=== PATIENT | female | born 1975 | race African-American/Black ===

== ENCOUNTER 2018-09-26 23:26 | Emergency (ER) | payer OTHER, MEDICAID ==
[~2018-09-26] VITALS: Ht 165.1 cm; Wt 82.0 kg
[~2018-09-26 23:26] MED LIST: UNK MEDS
[2018-09-27] MEDS ORDERED: CLONIDINE 0.1MG TABLET PO ONE (06:45)
[2018-09-27 08:04] LABS: BASOPHILS % 0.7 % (0.0-2.0); EOSINOPHILS % 5.2 % (0.0-5.0); HEMATOCRIT. 36.3 % (36.0-48.0); HEMOGLOBIN. 11.9 g/dL (12.0-16.0); LYMPHOCYTES % 45.6 % (20.0-50.0); MEAN CORPUSCULAR HEMOGLOBIN 27.6 pg (28.0-32.0); MEAN CORPUSCULAR VOLUME 84.2 fL (81.0-99.0); MEAN PLATELET VOLUME 7.4 fl (7.4-10.4); MONOCYTES % 13.2 % (2.0-8.0); NEUTROPHILS % 35.3 % (40.0-76.0); PLATELET 332 x1000/uL (130-400); RED BLOOD CELL COUNT 4.31 mill/uL (4.2-5.4); RED CELL DISTRIBUTION WIDTH 14.1 % (11.6-14.6)
[2018-09-27 08:09] LABS: CHLORIDE 104 mEq/L (98-107)
[2018-09-27 09:49] LABS: *BARBITURATES SCREEN URINE NEGATIVE (NEGATIVE)
[2018-09-27 09:50] LABS: *BENZODIAZEPINES SCREEN URINE NEGATIVE (NEGATIVE); *COCAINE SCREEN URINE NEGATIVE (NEGATIVE); METHADONE URINE SCREEN NEGATIVE (NEGATIVE)
[2018-09-27 09:56] LABS: OPIATES URINE SCREEN NEGATIVE (NEGATIVE)
[2018-09-27 09:57] LABS: *AMPHETAMINES SCREEN URINE PRESUMTIVE POSITIVE (NEGATIVE); CANNABINOID URINE SCREEN PRESUMTIVE POSITIVE (NEGATIVE); PHENCYCLIDINE URINE SCREEN PRESUMTIVE POSITIVE (NEGATIVE)
[2018-09-27 14:27] VITALS: BP 163/106
== END 2018-09-27 14:42 | disposition home or self-care (01) ==
LOC: ER 23:26
DX: F15.10 Other stimulant abuse, uncomplicated (principal); I10 Essential (primary) hypertension; F16.10 Hallucinogen abuse, uncomplicated; F12.10 Cannabis abuse, uncomplicated; F17.210 Nicotine dependence, cigarettes, uncomplicated
CPT/HCPCS: 36415; 71045; 80305; 81025; 83880; 84484; 93005; 99284

== ENCOUNTER 2023-09-19 04:51 | Emergency (ER) | payer MEDICAID, OTHER ==
[~2023-09-19] VITALS: Ht 167.6 cm; Wt 104.0 kg
[2023-09-19 05:23] VITALS: BP 154/102; PULSE 88; RESP 18; TEMP 98.6; O2SAT 98
[2023-09-19] MEDS: ACETAMINOPHEN 325MG TABLET PO ONE (07:23)
== END 2023-09-19 09:08 | disposition left against medical advice (07) ==
LOC: ER 04:51
DX: I10 Essential (primary) hypertension (principal); M79.674 Pain in right toe(s); M79.675 Pain in left toe(s)
CPT/HCPCS: 99282; Z7610

== ENCOUNTER 2023-12-16 19:47 | Emergency (ER) | payer MEDICAID ==
[~2023-12-16] VITALS: Ht 165.1 cm; Wt 104.0 kg
[2023-12-16 20:02] VITALS: TEMP 98.3; O2SAT 100
[2023-12-16] MEDS: MORPHINE SULFATE 4 MG/ML INJ (FOR IV/IM USE) IM ONE (20:56)
[2023-12-16] MEDS: ONDANSETRON 4MG ODT PO ONE (20:56)
[2023-12-16] MEDS ORDERED: HYDR-4009 MT (21:05)
[2023-12-16] MEDS ORDERED: IBUP-2029 MT (21:05)
[2023-12-16] MEDS ORDERED: LIDO700A30 TP (21:05)
[2023-12-16 21:37] VITALS: BP 133/94; PULSE 105; RESP 18
[2023-12-16] MEDS: HYDROCODONE/ACETAMINOPHEN 10/325MG TABLET PO ONE (21:37)
== END 2023-12-17 00:03 | disposition home or self-care (01) ==
LOC: ER 19:47
DX: S22.42XA Multiple fractures of ribs, left side, initial encounter for closed fracture (principal); S42.302A Unspecified fracture of shaft of humerus, left arm, initial encounter for closed fracture; I10 Essential (primary) hypertension; Z79.899 Other long term (current) drug therapy; X58.XXXA Exposure to other specified factors, initial encounter; Y93.89 Activity, other specified; Y92.89 Other specified places as the place of occurrence of the external cause; Y99.8 Other external cause status
CPT/HCPCS: 99283; 96372; Q0162; J2270

== ENCOUNTER 2024-01-10 16:33 | Emergency (ER) | payer MEDICAID ==
[~2024-01-10] VITALS: Ht 165.1 cm; Wt 99.8 kg
[~2024-01-10 16:33] MED LIST changes: +HYDR-4009 MT; +IBUP-2029 MT; +LIDO700A30 TP
[2024-01-10 16:52] VITALS: O2SAT 99
[2024-01-10] MEDS ORDERED: ACETAMINOPHEN 325MG TABLET PO ONE (17:45)
[2024-01-10 20:00] VITALS: BP 158/91; PULSE 88; RESP 14; TEMP 98.1
[2024-01-10] MEDS ORDERED: ACETAMINOPHEN 325MG TABLET ONE (20:02)
== END 2024-01-10 20:10 | disposition home or self-care (01) ==
LOC: ER 16:33
DX: M25.532 Pain in left wrist (principal); I10 Essential (primary) hypertension; Z79.899 Other long term (current) drug therapy
CPT/HCPCS: 73110; 29105; 99283; Z7610; A4565

== ENCOUNTER 2024-05-01 06:36 | Emergency (ER) | payer MEDICAID ==
[~2024-05-01] VITALS: Ht 165.1 cm; Wt 95.5 kg
[2024-05-01 06:55] VITALS: O2SAT 99
[2024-05-01] MEDS ORDERED: DOXY100T2 MT (09:17)
[2024-05-01 09:35] LABS: CLARITY URINE CLOUDY (CLEAR); COLOR URINE YELLOW (YELLOW); GLUCOSE URINE NEGATIVE (NEGATIVE); KETONES URINE TRACE (NEGATIVE); LEUKOCYTE ESTERASE URINE 1+ (NEGATIVE); NITRITE URINE NEGATIVE (NEGATIVE); OCCULT BLOOD URINE 2+ (NEGATIVE); PH URINE 5.5 (4.5-8.0); PROTEIN URINE TRACE (NEGATIVE); SPECIFIC GRAVITY URINE 1.023 (1.005-1.030)
[2024-05-01 09:41] VITALS: BP 132/82; PULSE 80; RESP 16; TEMP 37.00296; O2SAT 99
[2024-05-01] MEDS: LIDOCAINE HCL 1% 20ML VIAL INFIL ONE (09:41)
[2024-05-01] MEDS: CEFTRIAXONE SODIUM 500MG VIAL IM ONE (09:41)
[2024-05-01 09:45] LABS: SQUAMOUS EPITHELIAL CELL URINE 3+ /lpf (RARE/1+)
[2024-05-01 09:46] LABS: MUCUS URINE 2+ /lpf (< = 2+)
[2024-05-01 09:49] LABS: BACTERIA URINE 3+
[2024-05-01 10:13] LABS: TRICHOMONAS URINE FEW
[2024-05-03 08:08] LABS: CHLAMYDIA TRACHOMATIS NAA Negative (Negative); NEISSERIA GONORRHOEAE NAA Negative (Negative)
== END 2024-05-01 10:29 | disposition home or self-care (01) ==
LOC: ER 06:36
DX: Z20.2 Contact with and (suspected) exposure to infections with a predominantly sexual mode of transmission (principal); E78.00 Pure hypercholesterolemia, unspecified; E11.9 Type 2 diabetes mellitus without complications; I10 Essential (primary) hypertension; Z88.8 Allergy status to other drugs, medicaments and biological substances
CPT/HCPCS: 87491; 87591; 81003; 81025; 86592; 96372; 99283; J0696; J3490; Z7610

== ENCOUNTER 2024-05-13 11:54 | Emergency (ER) | payer MEDICAID ==
[~2024-05-13] VITALS: Ht 165.1 cm; Wt 92.0 kg
[~2024-05-13 11:54] MED LIST changes: +DOXY100T2 MT
[2024-05-13 11:59] VITALS: O2SAT 99
[2024-05-13 12:14] VITALS: BP 135/96; PULSE 96; RESP 16; TEMP 97.9; O2SAT 100
[2024-05-13] MEDS ORDERED: SULF1TAB48 MT (17:03)
[2024-05-13 17:24] LABS: CLARITY URINE CLEAR (CLEAR); COLOR URINE YELLOW (YELLOW); GLUCOSE URINE NEGATIVE (NEGATIVE); KETONES URINE NEGATIVE (NEGATIVE); LEUKOCYTE ESTERASE URINE NEGATIVE (NEGATIVE); NITRITE URINE NEGATIVE (NEGATIVE); OCCULT BLOOD URINE NEGATIVE (NEGATIVE); PROTEIN URINE NEGATIVE (NEGATIVE); UROBILINOGEN URINE 0.2 E.U./dL (0.2-1.0)
== END 2024-05-13 17:41 | disposition home or self-care (01) ==
LOC: ER 11:54
DX: R30.0 Dysuria (principal); I10 Essential (primary) hypertension; Z88.8 Allergy status to other drugs, medicaments and biological substances; Z79.899 Other long term (current) drug therapy
CPT/HCPCS: 81003; 81025; 99283

== ENCOUNTER 2024-11-18 17:24 | Emergency (ER) | payer MEDICAID ==
[~2024-11-18] VITALS: Ht 165.1 cm; Wt 87.0 kg
[2024-11-18 17:27] VITALS: O2SAT 100
[2024-11-18] MEDS ORDERED: ERYT60GE9 TP (19:05)
[2024-11-18 20:30] LABS: BASOPHILS % 0.6 % (0.0-2.0); EOSINOPHILS % 5.8 % (0.0-5.0); HEMATOCRIT. 39.5 % (36.0-48.0); HEMOGLOBIN. 12.5 g/dL (12.0-16.0); LYMPHOCYTES % 39.9 % (20.0-50.0); MEAN CORPUSCULAR HEMOGLOBIN 26.4 pg (28.0-32.0); MEAN CORPUSCULAR HGB CONC 31.8 g/dL (31.0-37.0); MEAN PLATELET VOLUME 7.4 fl (7.4-10.4); MONOCYTES % 9.9 % (2.0-8.0); NEUTROPHILS % 43.8 % (40.0-76.0); PLATELET 385 x1000/uL (130-400); RED BLOOD CELL COUNT 4.76 mill/uL (4.2-5.4); RED CELL DISTRIBUTION WIDTH 15.3 % (11.6-14.6); WHITE BLOOD COUNT 8.4 x1000/uL (4.5-11.0)
[2024-11-18 20:36] LABS: CHLORIDE 107 mEq/L (98-107); POTASSIUM 4.1 mEq/L (3.5-5.1); SODIUM 139 mEq/L (136-145)
[2024-11-18 20:37] LABS: CARBON DIOXIDE 27 mEq/L (21-32)
[2024-11-18 20:42] LABS: CREATININE 0.9 mg/dL (0.6-1.0); GLUCOSE 92 mg/dL (70-105); UREA NITROGEN BLOOD 6 mg/dL (9-23)
[2024-11-18 22:29] VITALS: BP 162/106; PULSE 91; RESP 12; TEMP 36.9; O2SAT 98
== END 2024-11-18 22:18 | disposition home or self-care (01) ==
LOC: ER 17:24
DX: L73.9 Follicular disorder, unspecified (principal); I10 Essential (primary) hypertension; F15.10 Other stimulant abuse, uncomplicated; Z87.891 Personal history of nicotine dependence; Z88.8 Allergy status to other drugs, medicaments and biological substances; Z91.148 Patient's other noncompliance with medication regimen for other reason
CPT/HCPCS: 36415; 80048; 85025; 99283

== ENCOUNTER 2024-12-16 16:00 | Emergency (ER) | payer MEDICAID ==
[~2024-12-16] VITALS: Ht 162.6 cm; Wt 79.4 kg
[~2024-12-16 16:00] MED LIST changes: +ERYT60GE9 TP
[2024-12-16 16:02] VITALS: O2SAT 100
[2024-12-16] MEDS: ONDANSETRON 4MG ODT PO ONE (16:45)
[2024-12-16] MEDS: MAGNESIUM/ALUMINUM HYDROXIDE/SIMETHICONE 30ML UDC PO ONE (16:45)
[2024-12-16 20:08] VITALS: BP 157/97; PULSE 80; RESP 19; TEMP 36.9; O2SAT 100
== END 2024-12-16 20:21 | disposition home or self-care (01) ==
LOC: ER 16:00
DX: R09.A2 Foreign body sensation, throat (principal); M54.2 Cervicalgia; I10 Essential (primary) hypertension; Z88.8 Allergy status to other drugs, medicaments and biological substances
CPT/HCPCS: 99284; 70490; Q0162

== ENCOUNTER 2025-03-19 05:42 | Emergency (ER) | payer MEDICAID ==
[~2025-03-19] VITALS: Ht 165.1 cm; Wt 80.0 kg
[~2025-03-19 05:42] MED LIST changes: +IBUP-1455 MT; -IBUP-2029 MT
[2025-03-19 05:45] VITALS: BP 151/90; PULSE 100; RESP 18; O2SAT 98
== END 2025-03-19 06:48 | disposition home or self-care (01) ==
LOC: ER 05:42
DX: T65.891A Toxic effect of other specified substances, accidental (unintentional), initial encounter (principal); I10 Essential (primary) hypertension; Z79.899 Other long term (current) drug therapy; Z88.8 Allergy status to other drugs, medicaments and biological substances; Y92.89 Other specified places as the place of occurrence of the external cause
CPT/HCPCS: 99283

== ENCOUNTER 2025-03-19 14:19 | Emergency (ER) | payer OTHER, MEDICAID ==
[~2025-03-19] VITALS: Ht 170.2 cm; Wt 90.0 kg
[2025-03-19 14:23] VITALS: TEMP 37; O2SAT 99
[2025-03-19 16:06] VITALS: BP 157/94; PULSE 81; RESP 16; O2SAT 100
== END 2025-03-19 16:15 ==
LOC: ER 14:19
DX: R07.89 Other chest pain (principal); I10 Essential (primary) hypertension; Z88.8 Allergy status to other drugs, medicaments and biological substances
CPT/HCPCS: 71045; 93005; 99283